=== PATIENT | male | born 1950 | race Two or more races ===

== ENCOUNTER 2019-11-17 09:41 | Outpatient (CLI) | payer OTHER | END 2019-11-17 09:47 | disposition home or self-care (01) | LOC: SONOGRAMA 09:41 → MAMO-SONO 10:45 | PROVIDERS: ATTEND Urology | DX: R97.20 Elevated prostate specific antigen [PSA] (principal) ==

== ENCOUNTER → 2019-11-29 10:31 | Outpatient (CLI) | payer OTHER | END | disposition home or self-care (01) | LOC: LAB 10:31 | PROVIDERS: ATTEND Urology | DX: R97.20 Elevated prostate specific antigen [PSA] (principal); N39.0 Urinary tract infection, site not specified ==

== ENCOUNTER 2019-12-26 09:55 | Outpatient (CLI) | payer OTHER | END 2019-12-26 10:02 | disposition home or self-care (01) | LOC: RAD 09:55 | PROVIDERS: ATTEND Urology | DX: R97.20 Elevated prostate specific antigen [PSA] (principal) ==

== ENCOUNTER 2020-02-08 08:03 | Outpatient (CLI) | payer OTHER | END 2020-02-09 11:32 | disposition home or self-care (01) | LOC: MRI 08:03 | PROVIDERS: ATTEND Urology | DX: C61 Malignant neoplasm of prostate (principal) | CPT/HCPCS: 72197; A9575 ==

== ENCOUNTER 2020-02-08 09:25 | Outpatient (CLI) | payer OTHER | END 2020-02-08 09:29 | disposition home or self-care (01) | LOC: LAB 09:25 | PROVIDERS: ATTEND Radiology Diagnostic Radiology | DX: N20.0 Calculus of kidney (principal) ==

== ENCOUNTER 2020-02-13 08:34 | Outpatient (CLI) | payer OTHER | END 2020-02-13 08:46 | disposition home or self-care (01) | LOC: NUCLEAR 08:34 | PROVIDERS: ATTEND Urology | DX: C61 Malignant neoplasm of prostate (principal) | CPT/HCPCS: 78306; A9503 ==

== ENCOUNTER 2020-03-09 08:40 | Outpatient (CLI) | payer OTHER | END 2020-03-09 13:38 | disposition home or self-care (01) | LOC: LAB 08:40 | PROVIDERS: ATTEND Radiology Diagnostic Radiology | DX: C61 Malignant neoplasm of prostate (principal) ==

== ENCOUNTER → 2020-03-19 | Outpatient (CLI) | payer OTHER | END | disposition home or self-care (01) | LOC: NUCLEAR 08:07 | DX: R07.89 Other chest pain (principal); C61 Malignant neoplasm of prostate | CPT/HCPCS: 78452; 93017; A9500; J0153 ==

== ENCOUNTER 2023-12-03 10:51 | Outpatient (CLI) | payer OTHER | END 2023-12-03 11:01 | disposition home or self-care (01) | LOC: SONOGRAMA 10:51 | PROVIDERS: ATTEND Internal Medicine | DX: R31.9 Hematuria, unspecified (principal) ==

== ENCOUNTER 2025-03-12 11:40 | Emergency (ER) | payer OTHER ==
[~2025-03-12] VITALS: Ht 177.8 cm; Wt 88.5 kg
[2025-03-12] MEDS ORDERED: EZETIMIBE10 MG PO (12:33)
[2025-03-12] MEDS ORDERED: ROSUVASTATIN CA10 MG PO (12:33)
[2025-03-12] MEDS ORDERED: 0.9 % SODIUM CHLORIDE 1,000 ML IV ONE (14:00)
[2025-03-12 14:32] LABS: BASO % 0.5 % (0.1-1.2); EOS # 0.31 (0.04-0.54); EOS % 5.2 % (0.7-7.0); LYMPH # 1.46 (1.18-3.74); LYMPH % 24.7 % (19.3-53.1); MEAN PLATELET VOLUME 9.80 fl (9.4-12.4); MONO # 0.60 (0.24-0.82); MONO % 10.1 % (4.7-12.5); NEUT # 3.51 (1.56-6.13); NEUT % 59.3 % (34.0-71.1); RED CELL DISTRIBUTION WIDTH 12.4 % (11.6-14.4)
[2025-03-12 14:57] LABS: INR 0.99
[2025-03-12 15:04] LABS: ALT/SGPT 34.0 U/L (12-78); AST/SGOT 16.0 U/L (15-37); BILIRUBIN TOTAL 0.51 mg/dL (0.3-1.2); BUN CREA RATIO 13.0 (7.0-25.0); CREATININE SERUM 0.92 mg/dL (0.70-1.30); GFR 80.87; GLOBULINA 3.6 G/DL (2.4-3.5); GLUCOSE FASTING 122.0 mg/dL (65-100); OSMOLALITY SERUM 286.0 MOSM/KG (275-295)
[2025-03-12 15:15] LABS: URINE APPEARANCE BLOODY; URINE BILIRRUBIN LARGE (NEGATIVE); URINE BLOOD LARGE; URINE COLOR BROWN; URINE GLUCOSE 100 MG/DL (NEGATIVE); URINE KETONE 15 (NEGATIVE); URINE LEUKOCYTE MODERATE; URINE NITRATE POSITIVE; URINE PROTEIN >=300 (NEGATIVE); URINE UROBILINOGEN 4.0 E.U./dl
[2025-03-12 15:50] LABS: URINE BACTERIA MODERATE; URINE RBC NONE SEEN /HPF; URINE WBC 41-50 /hpf
== END 2025-03-12 18:05 | disposition home or self-care (01) ==
LOC: ER 11:41
PROVIDERS: General Practice
DX: R31.9 Hematuria, unspecified (principal)
CPT/HCPCS: 36415; 74177; 96365; 96366; 99284; J7030; Q9965